=== PATIENT | female | born 1950 | race Caucasian/White ===

== ENCOUNTER 2024-04-18 21:20 | Inpatient (IN) | payer MEDICARE, OTHER ==
[~2024-04-18] VITALS: Ht 162.6 cm; Wt 80.7 kg
[2024-04-18 22:56] LABS: BASOPHILS % 0.2 % (0.0-2.0); DIFFERENTIAL COMMENT 0; EOSINOPHILS % 0.1 % (0.0-5.0); HEMATOCRIT. 32.5 % (36.0-48.0); HEMOGLOBIN. 11.2 g/dL (12.0-16.0); LYMPHOCYTES % 9.1 % (20.0-50.0); MEAN CORPUSCULAR HGB CONC 34.4 g/dL (31.0-37.0); MEAN CORPUSCULAR VOLUME 107.4 fL (81.0-99.0); MEAN PLATELET VOLUME 7.7 fl (7.4-10.4); MONOCYTES % 8.8 % (2.0-8.0); NEUTROPHILS % 81.8 % (40.0-76.0); PLATELET 256 x1000/uL (130-400); RED BLOOD CELL COUNT 3.03 mill/uL (4.2-5.4); RED CELL DISTRIBUTION WIDTH 16.3 % (11.6-14.6); WHITE BLOOD COUNT 12.4 x1000/uL (4.5-11.0)
[2024-04-18 23:04] LABS: CHLORIDE 92 mEq/L (98-107); POTASSIUM 3.4 mEq/L (3.5-5.1); SODIUM 126 mEq/L (136-145)
[2024-04-18 23:05] LABS: CARBON DIOXIDE 25 mEq/L (21-32)
[2024-04-18 23:06] LABS: CALCIUM 8.5 mg/dL (8.7-10.4)
[2024-04-18] MEDS: SODIUM CHLORIDE 0.9% 1,000 ML IV ONE (23:07)
[2024-04-18 23:10] LABS: CREATININE 2.5 mg/dL (0.6-1.0); GLUCOSE 126 mg/dL (70-105); UREA NITROGEN BLOOD 39 mg/dL (9-23)
[2024-04-18 23:11] LABS: TROPONIN I HIGH SENSITIVITY 12 ng/L (3.0-34)
[2024-04-18] MEDS: AZITHROMYCIN 500MG/250ML 250 ML IV ONE (23:45)
[2024-04-18] MEDS: POTASSIUM CHLORIDE 20MEQ TABLET SR PO ONE (23:59)
[2024-04-19] MEDS: CEFTRIAXONE 1GM/50ML 50 ML IV ONE (02:42)
[2024-04-19] MEDS: CEFTRIAXONE 1GM/50ML 50 ML IV NR (02:45)
[2024-04-19] MEDS: AZITHROMYCIN 500MG/250ML 250 ML IV NR (03:10)
[2024-04-19 03:26] LABS: CLARITY URINE CLOUDY (CLEAR); COLOR URINE DARK YELLOW (YELLOW); GLUCOSE URINE NEGATIVE (NEGATIVE); KETONES URINE NEGATIVE (NEGATIVE); LEUKOCYTE ESTERASE URINE 2+ (NEGATIVE); NITRITE URINE NEGATIVE (NEGATIVE); OCCULT BLOOD URINE 2+ (NEGATIVE); PH URINE 5.5 (4.5-8.0); PROTEIN URINE 1+ (NEGATIVE); SPECIFIC GRAVITY URINE 1.015 (1.005-1.030)
[2024-04-19 04:53] LABS: BACTERIA URINE 1+; MUCUS URINE 2+ /lpf (< = 2+); RENAL EPITHELIAL CELLS URINE 1+ /lpf; SQUAMOUS EPITHELIAL CELL URINE 1+ /lpf (RARE/1+)
[2024-04-19 08:35] VITALS: BP 130/50; PULSE 95; RESP 20; TEMP 97.9
[2024-04-19] MEDS ORDERED: CLONIDINE 0.1MG TABLET PO PRN (09:00)
[2024-04-19] MEDS ORDERED: DIPHENHYDRAMINE 50MG/ML VIAL IV PRN (09:00)
[2024-04-19] MEDS ORDERED: IPRATROPIUM/ALBUTEROL 0.5-3(2.5)MG/3ML NEB HHN PRN (09:00)
[2024-04-19] MEDS ORDERED: ONDANSETRON HCL 4MG/2ML INJ IV PRN (09:00)
[2024-04-19] MEDS ORDERED: ACETAMINOPHEN 325MG TABLET PO PRN (09:00)
[2024-04-19] MEDS ORDERED: LOSA100T33 PO (09:33)
[2024-04-19] MEDS ORDERED: OMEG-118 MT (09:33)
[2024-04-19] MEDS ORDERED: ATOR20TA65 PO (09:33)
[2024-04-19] MEDS ORDERED: CALC-1042 PO (09:33)
[2024-04-19] MEDS ORDERED: HYDR25TA PO (09:33)
[2024-04-19] MEDS ORDERED: NAPR-681 PO (09:33)
[2024-04-19 10:00] VITALS: BP 130/50; PULSE 95; RESP 18; TEMP 97.6
[2024-04-19 12:00] VITALS: BP 126/51; PULSE 92; RESP 20; TEMP 97.9
[2024-04-19] MEDS: ASPIRIN 81MG EC TABLET PO SCH (13:06)
[2024-04-19] MEDS: SODIUM CHLORIDE 0.45% 1,000 ML IV SCH (13:07)
[2024-04-19 16:00] VITALS: BP 120/64; PULSE 93; RESP 18; TEMP 97.7
[2024-04-19 16:30] LABS: CARBON DIOXIDE 24 mEq/L (21-32); CHLORIDE 94 mEq/L (98-107); POTASSIUM 3.3 mEq/L (3.5-5.1); SODIUM 128 mEq/L (136-145)
[2024-04-19 16:36] LABS: CREATINE KINASE 243 IU/L (34-145); GLUCOSE 108 mg/dL (70-105); UREA NITROGEN BLOOD 33 mg/dL (9-23)
[2024-04-19 16:38] LABS: PHOSPHORUS 1.9 mg/dL (2.5-4.9)
[2024-04-19 16:41] LABS: CREATININE 1.6 mg/dL (0.6-1.0)
[2024-04-19 17:16] LABS: CLARITY URINE CLOUDY (CLEAR); COLOR URINE YELLOW (YELLOW); GLUCOSE URINE NEGATIVE (NEGATIVE); KETONES URINE NEGATIVE (NEGATIVE); LEUKOCYTE ESTERASE URINE 1+ (NEGATIVE); NITRITE URINE NEGATIVE (NEGATIVE); OCCULT BLOOD URINE 2+ (NEGATIVE); PH URINE 5.5 (4.5-8.0); PROTEIN URINE 1+ (NEGATIVE); SPECIFIC GRAVITY URINE 1.012 (1.005-1.030)
[2024-04-19 17:38] LABS: CREATININE URINE RANDOM 108.9 mg/dL
[2024-04-19 19:08] LABS: HYALINE CASTS URINE 0-5 /lpf
[2024-04-19 19:10] LABS: CALCIUM OXALATE CRYSTALS URINE 1+ /lpf
[2024-04-19 19:11] LABS: SQUAMOUS EPITHELIAL CELL URINE FEW /lpf (RARE/1+)
[2024-04-19 19:12] LABS: BACTERIA URINE 1+
[2024-04-19 20:00] VITALS: BP_SYST 119; BP_SYST 122; BP_SYST 131; BP_DIAS 67; BP_DIAS 72; BP_DIAS 77; PULSE 89; RESP 17; TEMP 98
[2024-04-19] MEDS: CEFTRIAXONE 2GM/50ML 50 ML IV SCH (21:34)
[2024-04-19] MEDS: ATORVASTATIN CALCIUM 20MG TABLET PO SCH (21:34)
[2024-04-20 04:00] VITALS: BP 119/59; PULSE 77; RESP 18; TEMP 98.2
[2024-04-20 06:05] LABS: BASOPHILS % 0.4 % (0.0-2.0); DIFFERENTIAL COMMENT 0; EOSINOPHILS % 0.5 % (0.0-5.0); HEMATOCRIT. 32.7 % (36.0-48.0); HEMOGLOBIN. 11.3 g/dL (12.0-16.0); LYMPHOCYTES % 14.7 % (20.0-50.0); MEAN CORPUSCULAR HEMOGLOBIN 37.4 pg (28.0-32.0); MEAN CORPUSCULAR HGB CONC 34.5 g/dL (31.0-37.0); MEAN CORPUSCULAR VOLUME 108.4 fL (81.0-99.0); MEAN PLATELET VOLUME 7.8 fl (7.4-10.4); MONOCYTES % 13.5 % (2.0-8.0); NEUTROPHILS % 70.9 % (40.0-76.0); PLATELET 210 x1000/uL (130-400); RED BLOOD CELL COUNT 3.02 mill/uL (4.2-5.4); RED CELL DISTRIBUTION WIDTH 16.5 % (11.6-14.6); WHITE BLOOD COUNT 5.9 x1000/uL (4.5-11.0)
[2024-04-20 06:15] LABS: CHLORIDE 95 mEq/L (98-107); POTASSIUM 3.1 mEq/L (3.5-5.1); SODIUM 128 mEq/L (136-145)
[2024-04-20 06:16] LABS: CARBON DIOXIDE 23 mEq/L (21-32)
[2024-04-20 06:17] LABS: CALCIUM 8.1 mg/dL (8.7-10.4)
[2024-04-20 06:20] LABS: TROPONIN I HIGH SENSITIVITY 14 ng/L (3.0-34)
[2024-04-20 06:21] LABS: CREATININE 1.2 mg/dL (0.6-1.0); GLUCOSE 96 mg/dL (70-105)
[2024-04-20 06:22] LABS: UREA NITROGEN BLOOD 25 mg/dL (9-23)
[2024-04-20 06:23] LABS: THYROID STIMULATING HORMONE 1.05 uIU/mL (0.55-4.78)
[2024-04-20 08:00] VITALS: BP_SYST 105; BP_SYST 112; BP_SYST 123; BP_DIAS 47; BP_DIAS 49; BP_DIAS 51; PULSE 75; RESP 18; TEMP 98
[2024-04-20] MEDS: POTASSIUM CHLORIDE 20MEQ/PACKET PO NR (11:45)
[2024-04-20 12:00] VITALS: BP 115/56; PULSE 77; RESP 20; TEMP 97.6
[2024-04-20] MEDS: SODIUM CHLORIDE 0.9% 1,000 ML IV SCH (15:58)
[2024-04-20 16:00] VITALS: BP 119/47; PULSE 78; RESP 20; TEMP 97.6
[2024-04-20 20:00] VITALS: BP 114/62; PULSE 77; RESP 18; TEMP 98
[2024-04-21 04:00] VITALS: BP 116/57; PULSE 72; RESP 18; TEMP 98.2
[2024-04-21 07:09] LABS: CARBON DIOXIDE 24 mEq/L (21-32); CHLORIDE 100 mEq/L (98-107); POTASSIUM 3.6 mEq/L (3.5-5.1); SODIUM 132 mEq/L (136-145)
[2024-04-21 07:11] LABS: CALCIUM 7.9 mg/dL (8.7-10.4); HEMATOCRIT. 29.8 % (36.0-48.0); HEMOGLOBIN. 10.2 g/dL (12.0-16.0); MEAN CORPUSCULAR HEMOGLOBIN 36.7 pg (28.0-32.0); MEAN CORPUSCULAR HGB CONC 34.1 g/dL (31.0-37.0); MEAN CORPUSCULAR VOLUME 107.6 fL (81.0-99.0); MEAN PLATELET VOLUME 7.5 fl (7.4-10.4); PLATELET 208 x1000/uL (130-400); RED BLOOD CELL COUNT 2.77 mill/uL (4.2-5.4); RED CELL DISTRIBUTION WIDTH 16.5 % (11.6-14.6); WHITE BLOOD COUNT 3.1 x1000/uL (4.5-11.0)
[2024-04-21 07:15] LABS: CREATININE 0.8 mg/dL (0.6-1.0); GLUCOSE 99 mg/dL (70-105); UREA NITROGEN BLOOD 14 mg/dL (9-23)
[2024-04-21 07:21] LABS: DIFFERENTIAL COMMENT 1
[2024-04-21 08:00] VITALS: BP 114/52; PULSE 67; RESP 18; TEMP 97.6
[2024-04-21 10:35] LABS: ANISOCYTOSIS 1+; PLATELET ESTIMATE NORMAL
[2024-04-21 12:00] VITALS: BP 113/51; PULSE 67; RESP 16; TEMP 98
[2024-04-21] MEDS: POTASSIUM CHLORIDE 20MEQ/PACKET PO NR (15:11)
[2024-04-21 16:00] VITALS: BP 110/49; PULSE 63; RESP 20; TEMP 98.6
[2024-04-21 20:00] VITALS: BP 105/54; PULSE 71; RESP 18; TEMP 97.8
[2024-04-22] VITALS: BP 124/55; PULSE 74; RESP 18; TEMP 97.9
[2024-04-22 04:00] VITALS: BP 130/59; PULSE 71; RESP 19; TEMP 97.7
[2024-04-22 06:16] LABS: CALCIUM 8.1 mg/dL (8.7-10.4); CARBON DIOXIDE 24 mEq/L (21-32); CHLORIDE 103 mEq/L (98-107); POTASSIUM 3.7 mEq/L (3.5-5.1); SODIUM 136 mEq/L (136-145)
[2024-04-22 06:22] LABS: CREATININE 0.7 mg/dL (0.6-1.0); GLUCOSE 94 mg/dL (70-105); UREA NITROGEN BLOOD 8 mg/dL (9-23)
[2024-04-22 06:31] LABS: HEMATOCRIT. 30.4 % (36.0-48.0); HEMOGLOBIN. 10.2 g/dL (12.0-16.0); MEAN CORPUSCULAR HEMOGLOBIN 35.9 pg (28.0-32.0); MEAN CORPUSCULAR HGB CONC 33.4 g/dL (31.0-37.0); MEAN CORPUSCULAR VOLUME 107.5 fL (81.0-99.0); MEAN PLATELET VOLUME 7.6 fl (7.4-10.4); PLATELET 214 x1000/uL (130-400); RED BLOOD CELL COUNT 2.83 mill/uL (4.2-5.4); RED CELL DISTRIBUTION WIDTH 16.6 % (11.6-14.6); WHITE BLOOD COUNT 3.7 x1000/uL (4.5-11.0)
[2024-04-22 07:48] LABS: DIFFERENTIAL COMMENT 1
[2024-04-22 08:00] VITALS: BP 138/60; PULSE 65; RESP 18; TEMP 97.9
[2024-04-22 12:00] VITALS: BP 143/55; PULSE 67; RESP 18; TEMP 97.9
[2024-04-22] MEDS ORDERED: LEVO750T68 MT (15:11)
[2024-04-22] MEDS ORDERED: ASPI-1406 PO (15:11)
[2024-04-22 15:23] VITALS: BP 143/55; PULSE 67; TEMP 97.9; O2SAT 97
[2024-04-22 17:36] LABS: PLATELET ESTIMATE NORMAL
== END 2024-04-22 17:44 | disposition home or self-care (01) | DRG 871 ==
LOC: ER 21:20 → 7WST 04-19 00:32 → EDBEDREQ 04-19 00:54 → EDBEDREQTM 04-19 00:54
PROVIDERS: ADMIT Internal Medicine; ATTEND Internal Medicine
DX: A41.51 Sepsis due to Escherichia coli [E. coli] (principal); G93.41 Metabolic encephalopathy; E87.1 Hypo-osmolality and hyponatremia; N17.9 Acute kidney failure, unspecified; N39.0 Urinary tract infection, site not specified; G90.9 Disorder of the autonomic nervous system, unspecified; I10 Essential (primary) hypertension; E86.0 Dehydration; E87.6 Hypokalemia; E78.00 Pure hypercholesterolemia, unspecified; Z20.822 Contact with and (suspected) exposure to COVID-19; Z79.82 Long term (current) use of aspirin; Z79.899 Other long term (current) drug therapy; W18.30XA Fall on same level, unspecified, initial encounter; Y93.89 Activity, other specified; Y92.89 Other specified places as the place of occurrence of the external cause; Y99.8 Other external cause status
CPT/HCPCS: 36415; 71045; 71250; 76770; 80048; 81003; 82550; 82570; 83605; 83735; 83880; 83930; 83935; 84100; 84145; 84300; 84443; 84484; 85025; 87077; 87186; 87426; 93005; 93306; 93880; 93970; 99291; C1893; J0456; J0696; J7030